=== PATIENT | male | born 1955 | race Caucasian/White ===

== ENCOUNTER → 2023-07-08 18:00 | Outpatient (REF) | payer OTHER, MEDICARE, SELFPAY ==
--- NOTE | 2023-06-17 16:48 | PN.DIAED02 ---
Referral
DSME Class Series Code: [id number]
Referred For: Diabetes Self-Management Training
PHI Release Authorization Form Signed: Yes
Demographic
(1) Type 2 diabetes mellitus
Status: Acute Code(s): E11.9 - Type 2 diabetes mellitus without complications
Patient's primary language-: Divehi
Education: Vocation/Trade
Occupation: Vocational/Trade
Hours Worked/Week: < 20 (18 hrs)
Shift: Day
- Social
Primary Support Person: Self & spouse
Primary Care Takers: Self
Living Arrangements: Self & spouse
- Learning Methods
Preferred Method: Hands-on demonstration
Barriers to Learning: None
Glycemic Control
- Blood Glucose Monitoring Assessment
Date: 06/17/23
Blood glucose monitoring at home: No (Provided with [employer])
Monitor Brands: [employer] ([employer])
Frequency: 2x per day
Time: fasting, after breakfast, after lunch, after dinner
- Hemoglobin A1c
Date: 05/20/23
A1C Percentage (%): 7.6 (09/2022 6.3%)
Medical History of Diabetes
Previous Diabetes Education: Yes
How long ago?: 1-5 years ago (in [facility] office)
Previous visit with Dietitian: No
Complications/Comorbidity/Specialist: Hypertension
Measures
- Anthropometrics
Height: 5 ft 8 in
Actual Weight: 189 lb 4 oz
- Blood Pressure / Pulse
Blood pressure: 141/86
- Diabetes Management
Medical Management for Diabetes: Complete physical exam (08/2022), Dental exam (03/2023), Other (Covid 19 vaccine- 06/16/20 and 07/18/2020)
Self-Care
- Tobacco Usage
Do you now, or have you ever smoked?: Current every day smoker
Amount (per day): Other (8/day. Discussed effects of nicotine on blood vessels)
- Alcohol & Drugs Usage
Drinks Alcohol: Yes
Amount/day: Other (2/month)
- Meals & Dining
Meals & Dining: Patient skips meals: No, Food Intolerance / Allergy: Yes (mushrooms), Cultural / [employer]aritan Dietary Needs: No
Primary Food Equipment Validation Specialist: Self
Primary Process Development Manager: Self
Dining Out Frequency: 1-3x per week (1)
- Physical Activity
Physical Limitation: No
Patient participates in physical Activity: No
- Patient-Self Assessment
Diabetes Knowledge: Poor
Feelings About Diabetes: Adaptation
General Health: Good
Importance of Health: Somewhat
Stress Level: Low
Diabetes Interferes With:: Nothing
Depression Survey Score: 1
Care Plan
- Education Needs
Patient Education Needs: Diabetes disease process, Chronic complications, Acute complications, Medication, Monitoring, Physical activity, Psychosocial Adjustment, Nutritional management, Goal setting & problem solving
Recommended Diabetes Training Program based on assessment: Outpatient Diabetes Education Program
- Plan of Care
Plan of Care:
Kahlil and , Yanet pre registering for outpt DSME classes. Current A1C 7.6%. Taking Metformin 500 mg BID and Pioglitazone 15 mg QD recently added. He has never monitored his BS. Provided with and instructions given on use of [employer].
Excellent return demonstration with result of 182 mg/dl, 3 1/2 hr post lunch. aware of proper testing technique, testing sites as well as testing pattern and expected results (as written on handout). Goals established, encouraged to exercise.
Briefly discussed foods containing CHO and importance to reduce portion sizes and include protein with each meal and snack. Handout on snack options provided. Directions to classroom given and phone number for any follow up questions.
--- NOTE | 2023-06-20 10:43 | PN.DIAED04 ---
Education Record
- Education Record
Class Attended: Class 1 (pre registration 06/17/23 for outpt DSME classes starting 07/08/23)
DSME Class Series Code: [id number]
Instructor: Registered Nurse (Mara Acosta, RN, BSN, [facility])
Class Curriculum:
Outpatient Diabetes Education Program:
Initial Assessment (45 minutes)
Individualized assessment
Develop personal strategies to promote health and behavior change
Development of diabetes self-management support plan
Class Length (mins): 60
Pre-Program Knowledge: No knowledge
Pre-Test Score (%): 35
Goals
- Goal 1
Being Active: Exercise more often (Goal is to use treadmill, bicycle or walk for 30 minutes 2-4 times/week)
Goals To Be Evaluated: Exercise more often
- Goal 2
Healthy Eating: Make better food choices
Goals To Be Evaluated: Make better food choices
- Goal 3
Monitoring: Follow monitoring schedule, Monitor more often
Goals To Be Evaluated: Follow monitoring times. Monitor more often
--- NOTE | 2023-07-10 08:09 | PN.DIAED04 ---
Education Record
- Education Record
Class Attended: Class 1
DSME Class Series Code: [id number]
Instructor: Registered Nurse (Mara Acosta, RN, BSN, CDE)
Class Length (mins): 120
Post-Class 1 Test Score (%): 100
--- NOTE | 2023-07-10 08:10 | PN.DIAED14 ---
This is to notify you that your patient with diabetes, MARILOU MUNIZ ( 1955), has enrolled in our diabetes self-management classes that are being held at [facility].
These classes will include an introduction to diabetes, diet, medication, exercise and prevention of complications. At the end of our class series, you will receive a report of your patient's participation and progress for your records.
Please contact me at the Diabetes Center, , if there is any particular information regarding your patient that might be helpful to me.
Sincerely,
ARDEN Reagan-, [facility]
Diabetes & Nutrition Services Director
--- NOTE | 2023-07-11 09:54 | PN.DIAED06 ---
Meal Plans - Regular
- Meal Plan
Diabetic Meal Plan Name: 2000 calories
Breakfast - Total Carbohydrate (grams): 45
Breakfast - Starch Carbohydrate: 0
Breakfast - Fruit Carbohydrate: 0
Breakfast - Milk Carbohydrate: 0
Breakfast - Nonstarchy Vegetables: Yes
Breakfast - Meat/Protein: 1
Breakfast - Fat: 2
Morning Snack - Total Carbohydrate (grams): 30
Morning Snack - Starch Carbohydrate: 0
Morning Snack - Fruit Carbohydrate: 0
Morning Snack - Milk Carbohydrate: 0
Morning Snack - Nonstarchy Vegetables: Yes
Morning Snack - Meat/Protein: 0.5
Morning Snack - Fat: 0
Lunch - Total Carbohydrate (grams): 45
Lunch - Starch Carbohydrate: 0
Lunch - Fruit Carbohydrate: 0
Lunch - Milk Carbohydrate: 0
Lunch - Nonstarchy Vegetables: Yes
Lunch - Meat/Protein: 3
Lunch - Fat: 1
Afternoon Snack - Total Carbohydrate (grams): 30
Afternoon Snack - Starch Carbohydrate: 0
Afternoon Snack - Fruit Carbohydrate: 0
Afternoon Snack - Milk Carbohydrate: 0
Afternoon Snack - Nonstarchy Vegetables: Yes
Afternoon Snack - Meat/Protein: 0.5
Afternoon Snack - Fat: 0
Dinner - Total Carbohydrate (grams): 45
Dinner - Starch Carbohydrate: 0
Dinner - Fruit Carbohydrate: 0
Dinner - Milk Carbohydrate: 0
Dinner - Nonstarchy Vegetables: Yes
Dinner - Meat/Protein: 4
Dinner - Fat: 2
Evening Snack - Total Carbohydrate (grams): 15
Evening Snack - Starch Carbohydrate: 0
Evening Snack - Fruit Carbohydrate: 0
Evening Snack - Milk Carbohydrate: 0
Evening Snack - Nonstarchy Vegetables: Yes
Evening Snack - Meat/Protein: 0
Evening Snack - Fat: 0
== END ==
LOC: DES 18:00
PROVIDERS: ATTENDING PHYSICIAN Physician Assistant Medical
DX: E11.9 Type 2 diabetes mellitus without complications (principal)
CPT/HCPCS: 99078

== ENCOUNTER → 2023-07-15 18:00 | Outpatient (REF) | payer OTHER, MEDICARE, SELFPAY ==
--- NOTE | 2023-07-17 08:23 | PN.DIAED04 ---
Education Record
- Education Record
Class Attended: Class 2
[facility] Series Code: [id number]
Instructor: Registered Dietitian (Mariela Collins, LAURITAN, LDN)
Class Length (mins): 120
== END ==
LOC: DES 18:00
PROVIDERS: ATTENDING PHYSICIAN Physician Assistant Medical
DX: E11.9 Type 2 diabetes mellitus without complications (principal)
CPT/HCPCS: 99078

== ENCOUNTER → 2023-07-22 18:00 | Outpatient (REF) | payer OTHER, MEDICARE, SELFPAY ==
--- NOTE | 2023-07-24 08:18 | PN.DIAED04 ---
Education Record
- Education Record
Class Attended: Class 3
DSME Class Series Code: [id number]
Instructor: Registered Dietitian (Ericka Larios, RD, LDN, CDE)
Class Length (mins): 120
Post-Class 2 & 3 Test Score (%): 81
== END ==
LOC: DES 18:00
PROVIDERS: ATTENDING PHYSICIAN Physician Assistant Medical
DX: E11.9 Type 2 diabetes mellitus without complications (principal)
CPT/HCPCS: 99078

== ENCOUNTER → 2023-07-29 18:00 | Outpatient (REF) | payer OTHER, MEDICARE, SELFPAY ==
--- NOTE | 2023-07-31 12:36 | PN.DIAED04 ---
Education Record
- Education Record
Class Attended: Class 4
DSME Class Series Code: [id number]
Instructor: Registered Nurse (Mara Acosta, RN, BSN, CDE)
Class Length (mins): 120
Post-Class 4 Test Score (%): 93
== END ==
LOC: DES 18:00
PROVIDERS: ATTENDING PHYSICIAN Physician Assistant Medical
DX: E11.9 Type 2 diabetes mellitus without complications (principal)
CPT/HCPCS: 99078

== ENCOUNTER → 2023-08-05 18:00 | Outpatient (REF) | payer OTHER, MEDICARE, SELFPAY ==
--- NOTE | 2023-08-07 14:10 | PN.DIAED16 ---
This is to notify you that your patient with diabetes, MARILOU MUNIZ ( 1955), has attended the entire series of Diabetes Self-Management Education Classes.
Class 1 (120 minutes): Diabetes Overview - monitoring, stress/psychosocial adjustment, support, goal setting
Class 2 (120 minutes): Meal Planning - serving sizes, menu plans
Class 3 (120 minutes): Introduction to Carbohydrate Counting, Analyzing Food Labels
Class 4 (120 minutes): Medication, Exercise and Activity
Class 5 (120 minutes): Sick Day Management, Strategies to Reduce Complications, Problem Solving, Resources
The following behavioral goals were identified:
Exercise more often
Make better food choices
Follow monitoring times
Monitor more often
A follow-up call will be made within three to six months to evaluate attainment of these goals and to check post-program Hemoglobin A1c and overall progress. All class participants are encouraged to contact me if I can be any further assistance in
learning how to manage their diabetes.
Sincerely,
ARDEN Reagan-, [facility]
Diabetes & Nutrition Services Director
== END ==
LOC: DES 18:00
PROVIDERS: ATTENDING PHYSICIAN Physician Assistant Medical
DX: E11.9 Type 2 diabetes mellitus without complications (principal)
CPT/HCPCS: 99078